=== PATIENT | male | born 1970 | race Caucasian/White ===

== ENCOUNTER 2017-11-04 12:47 | Emergency (ER) | payer OTHER | END 2017-11-04 15:49 | disposition home or self-care (01) | LOC: D.ER 12:47 | DX: S61.216A Laceration without foreign body of right little finger without damage to nail, initial encounter (principal); W23.0XXA Caught, crushed, jammed, or pinched between moving objects, initial encounter; Y93.89 Activity, other specified; Y92.89 Other specified places as the place of occurrence of the external cause; S61.306A Unspecified open wound of right little finger with damage to nail, initial encounter ==